=== PATIENT | female | born 1965 | race Two or more races ===

== ENCOUNTER 2021-03-20 20:46 | Emergency (ER) | payer MEDICAID ==
[~2021-03-20] VITALS: Ht 154.9 cm; Wt 73.0 kg
[2021-03-20] MEDS ORDERED: ZIPRASIDONE MESYLATE 20MG/VIAL IM ONE (22:15)
[2021-03-20 23:59] LABS: BASOPHILS % 0.4 % (0.0-2.0); EOSINOPHILS % 1.1 % (0.0-5.0); HEMATOCRIT. 27.6 % (36.0-48.0); HEMOGLOBIN. 8.8 g/dL (12.0-16.0); LYMPHOCYTES % 16.1 % (20.0-50.0); MEAN CORPUSCULAR HEMOGLOBIN 23.7 pg (28.0-32.0); MEAN CORPUSCULAR VOLUME 74.3 fL (81.0-99.0); MONOCYTES % 8.6 % (2.0-8.0); NEUTROPHILS % 73.8 % (40.0-76.0); PLATELET 281 x1000/uL (130-400); RED BLOOD CELL COUNT 3.72 mill/uL (4.2-5.4); RED CELL DISTRIBUTION WIDTH 13.6 % (11.6-14.6)
[2021-03-21 00:05] LABS: CHLORIDE 109 mEq/L (98-107)
[2021-03-21 00:09] LABS: ETHANOL BLOOD < 10 mg/dL
[2021-03-21 00:59] LABS: CLARITY URINE CLEAR (CLEAR); COLOR URINE YELLOW (YELLOW); KETONES URINE 1+ (NEGATIVE); LEUKOCYTE ESTERASE URINE NEGATIVE (NEGATIVE); NITRITE URINE NEGATIVE (NEGATIVE); OCCULT BLOOD URINE NEGATIVE (NEGATIVE); PH URINE 5.5 (4.5-8.0); PROTEIN URINE TRACE (NEGATIVE); SPECIFIC GRAVITY URINE 1.016 (1.005-1.030)
[2021-03-21 01:17] LABS: *AMPHETAMINES SCREEN URINE PRESUMTIVE POSITIVE (NEGATIVE); *BARBITURATES SCREEN URINE NEGATIVE (NEGATIVE); *BENZODIAZEPINES SCREEN URINE NEGATIVE (NEGATIVE); *COCAINE SCREEN URINE NEGATIVE (NEGATIVE)
[2021-03-21 01:18] LABS: CANNABINOID URINE SCREEN NEGATIVE (NEGATIVE); METHADONE URINE SCREEN NEGATIVE (NEGATIVE); OPIATES URINE SCREEN NEGATIVE (NEGATIVE); PHENCYCLIDINE URINE SCREEN NEGATIVE (NEGATIVE)
[2021-03-21] MEDS ORDERED: BENZTROPINE MESYLATE 1MG TABLET PO SCH (09:00)
[2021-03-21] MEDS: HALOPERIDOL 5MG TABLET PO SCH ×2 (12:17→19:12)
[2021-03-21] MEDS: DIVALPROEX SODIUM 500MG ER TABLET PO SCH (12:40)
[2021-03-21] MEDS: BENZTROPINE MESYLATE 0.5MG TABLET PO SCH ×2 (12:41→21:29)
[2021-03-22] MEDS: DIVALPROEX SODIUM 500MG ER TABLET PO SCH (09:00)
[2021-03-22] MEDS: HALOPERIDOL 5MG TABLET PO SCH (09:00)
[2021-03-22] MEDS: BENZTROPINE MESYLATE 0.5MG TABLET PO SCH (09:00)
[2021-03-22 10:35] VITALS: BP 128/78
== END 2021-03-22 10:38 | disposition home or self-care (01) ==
LOC: ER 20:46
DX: F23 Brief psychotic disorder (principal); F15.10 Other stimulant abuse, uncomplicated; I10 Essential (primary) hypertension; Z78.1 Physical restraint status; Z20.822 Contact with and (suspected) exposure to COVID-19; Z75.1 Person awaiting admission to adequate facility elsewhere
CPT/HCPCS: 36415; 80053; 80307; 80320; 80329; 85025; 96372; 99285; C9803; J1630; J3486; U0005; G0480